=== PATIENT | male | born 1970 | race Caucasian/White ===

== ENCOUNTER → 2021-12-01 | Outpatient (CLI) | payer SELFPAY ==
--- NOTE | 2021-12-01 14:40 | ECHOD_ITS ---
Reason For Study: EDEMA Procedure This was a 2D Doppler, Color Flow transthoracic echocardiogram. The study was technically difficult. Contrast injection was performed. Exam performed in department. Left Ventricle Normal LV size. Mild to moderate segmental systolic dysfunction (see wall motion). The estimated ejection fraction is 40 %. There are regional wall motion abnormalities as specified. Right Ventricle Normal RV size. Normal systolic function. Atria The left atrium is mildly enlarged. Normal right atrium. Mitral Valve Mitral valve not well visualized. Tricuspid Valve The tricuspid valve is not well visualized. Aortic Valve Trisinus/trileaflet aortic valve. Great Vessels Normal aortic root. Pericardium/Pleural No pericardial effusion. Medication 22 gauge I.V. with prn adaptor inserted into left arm. Diluted definity 2ml given slow IV push to enhance endocardial definition. MMode/2D Measurements & Calculations LVIDd: 4.9 cm IVSd: 1.0 cm Ao root diam: 3.6 cm LVIDs: 3.3 cm LVPWd: 1.8 cm FS: 32.4 % LAV(MOD-sp4): 61.4 ml LA A4 area: 21.4 cm2 LA dimension(2D): 4.4 cm RA A4 area: 16.8 cm2 Doppler Measurements & Calculations Ao V2 max: 101.6 cm/sec LV V1 max: 82.3 cm/sec PA V2 max: 91.7 cm/sec Ao max P.1 mmHg LV V1 max P.7 mmHg PA V2 mean: 70.5 cm/sec ECHO/Echo Complete Interpretation Summary Normal LV size. Mild to moderate segmental systolic dysfunction (see wall motion). The estimated ejection fraction is 40 %. The left atrium is mildly enlarged. Contrast injection was performed. Ordering Physician: EZRA RAJAN Referring Physician: EZRA RAJAN Performed By: Tatiana Saba RCS
== END | disposition home or self-care (01) ==
LOC: CVS 14:38
DX: R60.9 Edema, unspecified (principal); R06.02 Shortness of breath; R79.89 Other specified abnormal findings of blood chemistry
CPT/HCPCS: 93306; Q9957; A4216